=== PATIENT | male | born 1990 | race Caucasian/White ===

== ENCOUNTER 2018-10-02 13:32 | Emergency (ER) | payer BC ==
[~2018-10-02] VITALS: Ht 170.2 cm; Wt 81.6 kg
== END 2018-10-02 19:15 | disposition home or self-care (01) ==
LOC: ER 13:32
DX: S62.612A Displaced fracture of proximal phalanx of right middle finger, initial encounter for closed fracture (principal); S62.614A Displaced fracture of proximal phalanx of right ring finger, initial encounter for closed fracture; S63.681A Other sprain of right thumb, initial encounter; X50.0XXA Overexertion from strenuous movement or load, initial encounter; Y93.89 Activity, other specified; Y92.838 Other recreation area as the place of occurrence of the external cause; Y99.8 Other external cause status